=== PATIENT | female | born 1945 | race Caucasian/White ===

== ENCOUNTER 2018-01-20 17:47 | Observation (INO) ==
[~2018-01-20 17:47] MED LIST: Gabapentin 300 MG CAPSULE PO SCH
--- NOTE | 2018-01-20 18:25 | Emergency Department Note ---
Disposition Clinical Impression: Dehydration Lower lobe pneumonia Qualifiers: Pneumonia type: due to unspecified organism Laterality: left Qualified Code(s) : J18.1 - Lobar pneumonia, unspecified organism Disposition: Admitted As Inpatient Condition: Fair Weakness HPI - General Stated complaint: weakness Time Seen by Provider: 01/20/18 18:08 Source: patient Limitations: no limitations Nursing Notes Reviewed: Yes Vital Signs Reviewed: Yes - History of Present Illness HPI Narrative: 72-year-old female presents emergency department for evaluation of generalized weakness. Patient was seen in emergency department earlier this day or evaluation and found to have evidence of a early left lower lobe pneumonia on x- ray. She was given IV antibiotics and IV fluids and well up to try to go home. After she returned home she found it too difficult to ambulate due to generalized weakness that she actually had a fall. She did not hurt herself. She states that there are no new symptoms since her discharge. Patient has prior history of bilateral hip replacements and left knee replacement. She also has chronic peripheral edema of her lower legs contributing to significant weight with attempting to ambulate. Patient earlier this day had a CT scan of the head related to her weakness and was found to show no acute abnormalities. Her laboratory studies were not significantly abnormal except for a slightly low sodium of 1:30. She does have some element of chronic renal insufficiency with elevated creatinine of 1.45 - Related Data Home Medications Medication Instructions Recorded Confirmed Amlodipine Besylate/Benazepril 1 each PO DAILY 12/11/17 01/20/18 [Lotrel 5-40 mg Capsule] Calcitriol [Rocaltrol] 0.25 mcg PO DAILY 12/11/17 01/20/18 Calcium Lactate 100 mg PO AD 12/11/17 01/20/18 Coconut Oil 2,000 mg PO BID 12/11/17 01/20/18 Ergocalciferol (VITAMIN D2) 2,000 unit PO DAILY 12/11/17 01/20/18 [Vitamin D2] Furosemide [Lasix] 20 mg PO PER PKG DI 12/11/17 01/20/18 Gabapentin [Neurontin] 300 mg PO PER PKG DI 12/11/17 01/20/18 Lactobac/Bifidobac/Glob Pr Con 1 each PO DAILY 12/11/17 01/20/18 [Ultra Arielle Plus Capsule] Metoprolol Succinate 100 mg PO DAILY 12/11/17 01/20/18 Omeprazole [PriLOSEC] 20 mg PO DAILY PRN 12/11/17 01/20/18 Ropinirole HCl [Requip Xl] 2 mg PO BID 12/11/17 01/20/18 Tramadol HCl [Ultram] 50 mg PO QID 12/11/17 01/20/18 Previous Rx's Medication Instructions Recorded levoFLOXacin [Levaquin] 500 mg PO ONCE #10 tablet 01/20/18 Allergies Allergy/AdvReac Type Severity Reaction Status Date / Time metformin Allergy Diarrhea Verified 01/20/18 18:17 pioglitazone Allergy Swelling Verified 01/20/18 18:17 of Lip/Tongue/Throat pregabalin [From Lyrica] Allergy See Verified 01/20/18 18:17 Comments Sulfa (Sulfonamide Allergy See Verified 01/20/18 18:17 Antibiotics) Comments sulfamethoxazole Allergy Redness of Verified 01/20/18 18:17 [From Bactrim] Skin trimethoprim [From Bactrim] Allergy Redness of Verified 01/20/18 18:17 Skin Amoxicillin [From Augmentin] AdvReac Diarrhea Verified 01/20/18 18:17 clavulanic acid AdvReac Diarrhea Verified 01/20/18 18:17 [From Augmentin] gabapentin AdvReac Nausea Verified 01/20/18 18:17 Review of Systems: Constitutional: See history of present illness HENT: [Negative for congestion.] Eyes: [Negative for discharge.] Respiratory: See history of present illness Cardiovascular: [Negative for chest pain.] Gastrointestinal: [Negative for nausea, vomiting, abdominal pain and diarrhea.] Endocrine: [Negative for excessive thirst,urination] Genitourinary: [Negative for dysuria and frequency.] Musculoskeletal: [Negative for myalgias and arthralgias.] Skin: [Negative for rash.] Neurological: See history of present illness needed for headache, localized weakness, or dizziness Psychiatric/Behavioral: [Negative for nervous/anxious.] All other systems reviewed and are negative. Past Medical History - Past Medical History Attestation: Yes The following information was validated with the patient. Source: patient Medical history: Reports: arthritis, GERD, hypertension, other Psychiatric history: Reports: no psych history - Social History Smoking Status: Never smoker Smokeless Tobacco Status: No Alcohol use: Reports: none Drug use: Reports: none Physical Exam Constitutional: Patient is [alert], morbidly obese and cooperative. . The patient appears and mildly symptomatic, nontoxic but mildly ill. HENT: Head: Normocephalic and atraumatic. Right Ear: External ear normal. Left Ear: External ear normal. Nose: Nose normal. Mouth/Throat: Oropharynx is clear and mucous membranes show mild dehydration persist Eyes: Conjunctivae and EOM are normal. Pupils are equal, round, and reactive to light. Right eye exhibits [no] discharge. Left eye exhibits [no] discharge. Neck: Trachea is midline, normal range of motion and [phonation normal]. Neck supple. Cardiovascular: [Regular rhythm], S1 normal, S2 normal, normal heart sounds and intact distal pulses. Exam reveals no gallop and no friction rub. No murmur heard. [Capillary refill is brisk.] [Peripheral pulses are 2+] Pulmonary/Chest: Effort [normal] No stridor. [No] tachypnea. [No] respiratory distress. There are [no] decreased breath sounds. [There no wheezes, no rhonchi , or rales.] Abdominal: Soft. [Bowel sounds are normal]. There exhibits [no] distension and [no] mass. There is no hepatosplenomegaly. There is [no tenderness], [no] CVA tenderness. There is [no rigidity, no rebound, no guarding]. Musculoskeletal: Normal range of motion of uninvolved extremities. There exhibits [no edema]. [ ] Neurological: Patient is alert. Patient displays no atrophy and no tremor. No cranial nerve deficit and exhibits normal muscle tone. Coordination normal grossly. Skin: Skin is warm and dry. No erythema. No rash noted. Psychiatric: Patient has a normal mood and affect. 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 Fu for admission [facility] - [facility] Narrative Medical decision making narrative: Patient has failed outpatient treatment for pneumonia and will be admitted for IV antibiotics and fluid hydration
[2018-01-20] MEDS ORDERED: Naloxone 0.4 MG/ML INJ IVP PRN (18:37)
[2018-01-20] MEDS ORDERED: Neosporin OINT 1 APPL PACKET TP ONE (18:42)
[2018-01-20] MEDS ORDERED: levoFLOXacin 500 MG TABLET PO SCH (18:46)
[2018-01-20] MEDS ORDERED: CALCIUM LACTATE 100 MG PO SCH (18:46)
[2018-01-20] MEDS ORDERED: COCONUT OIL 2000 MG PO SCH (21:00)
[2018-01-20] MEDS: 0.9 % Sodium Chloride 1,000 ML IVC SCH (21:58)
[2018-01-20] MEDS: rOPINIRole 1 MG TABLET PO SCH (21:59)
[2018-01-20] MEDS: Metoprolol XL (24 HR) Succ 50 MG TAB.ER.24H PO SCH (21:59)
[2018-01-20] MEDS: traMADol 50 MG TABLET PO SCH (22:00)
[2018-01-21] MEDS ORDERED: Mag Hydrox/Al Hydrox/Simeth 30 ML UDC PO PRN (02:19)
[2018-01-21] MEDS: Acetaminophen 325 MG TABLET PO PRN ×2 (02:31→19:25)
[2018-01-21] MEDS: 0.9 % Sodium Chloride 1,000 ML IVC SCH ×2 (04:43→12:51)
[2018-01-21 05:51] LABS: Basophils % 0.1 %; Eosinophils % 0.1 %; Hematocrit 30.5 % (35.3-44.9); Immature Granulocytes % 0.7 % (0-4); Lymphocytes # 0.6 K/mcL (0.6-4.6); Lymphocytes % 8.7 %; Mean Corpuscular HGB Conc 32.8 g/dL (31.6-35.5); Mean Corpuscular Hemoglobin 31.3 pg (28.0-33.3); Mean Corpuscular Volume 95.3 fL (83.0-100.0); Mean Platelet Volume 10.4 fL (9.4-12.4); Monocytes # 0.6 K/mcL (0.0-1.3); Platelet Count 139 K/mcL (140-400); Red Cell Distribution Width 14.1 % (11.5-14.5); Segmented Neutrophils % 82.4 %
[2018-01-21 06:10] LABS: Albumin 3.2 g/dL (3.5-5.7); Albumin/Globulin Ratio 1.1 (1.1-2.2); Bilirubin,Total 0.5 mg/dL (0.3-1.0); Calcium 8.3 mg/dL (8.6-10.3); Globulin 2.9 g/dL (2.4-3.5); Potassium 4.1 mEq/L (3.5-5.1); Total Protein 6.1 g/dL (6.4-8.9)
[2018-01-21 06:45] LABS: Magnesium 1.7 mg/dL (1.6-2.6)
[2018-01-21] MEDS ORDERED: Lactobacillus 1 EACH CAP.SPRINK PO SCH (09:00)
[2018-01-21] MEDS ORDERED: Levofloxacin 500 MG/100 ML 500 MG/100 ML BAG IVPB SCH (09:00)
[2018-01-21] MEDS ORDERED: NON-FORMULARY MEDICATION 1 EACH EACH (Metoprolol Succinate [Metoprolol Succinate] 100 MG) PO SCH (09:00)
[2018-01-21] MEDS: amLODIPine 5 MG TABLET PO SCH (09:35)
[2018-01-21] MEDS: traMADol 50 MG TABLET PO SCH ×4 (09:35→20:18)
[2018-01-21] MEDS: Cholecalciferol (D-3) 1,000 UNIT TABLET PO SCH (09:35)
[2018-01-21] MEDS: rOPINIRole 1 MG TABLET PO SCH ×2 (09:35→20:19)
[2018-01-21] MEDS: Lisinopril 20 MG TABLET PO SCH (09:35)
[2018-01-21] MEDS: Metoprolol XL (24 HR) Succ 50 MG TAB.ER.24H PO SCH ×2 (09:36→20:18)
--- NOTE | 2018-01-21 13:46 | Internal Med History&Physical ---
Date of Encounter: 01/21/18 Time of Encounter: 13:44 Assessment and Plan (1) Lower lobe pneumonia Current visit: Yes Status: Acute Continue Levaquin. Continue IV fluids. Will repeat labs in the morning. Qualifiers: Pneumonia type: due to unspecified organism Laterality: left Qualified Code(s): J18.1 - Lobar pneumonia, unspecified organism (2) Essential hypertension Current visit: Yes Status: Acute controlled. continue current meds. monitor BP. Internal Medicine - H&P: HPI Admitted From: Emergency Dept Plans for Post Hospital Care: Home History of present illness: Ms. Haddad is a 72 year old female admitted to inpatient unit for pneumonia and left lower lobe. Presented to the emergency room with a few day history of feeling weak. Was treated for pneumonia and discharged to home. Where she had a fall with no injuries at home due to weakness. Lives at home with [place]. 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 Continues to run low-grade fevers. Slightly elevated BUN and creatinine. Continue IV fluids. Continue oxygen per nasal cannula as needed. Will try to wean. Past medical history includes hypertension, osteoarthritis and Gerd. Denies shortness of breath, chest pain, chills, nausea vomiting or diarrhea. Starting to get appetite back. Bowels moving as normal. Past Med Surg Social Fam HX - Past Medical History Medical history: arthritis, diabetes, hyperlipidemia, hypertension Additional medical history: lower ext. edema Psychiatric history: no psych history - Past Surgical History Surgical History: hip replacement, knee replacement Additional surgical history: Saud Hip Replacement, Left Knee Replacement - Social History Smoking Status: Never smoker Smokeless Tobacco Status: No Alcohol use: none Drug use: none Internal Medicine - H&P: Meds Amlodipine Besylate/Benazepril [Lotrel 5-40 mg Capsule] 1 each PO DAILY [History] Calcitriol [Rocaltrol] 0.25 mcg PO DAILY 12/11/17 [History] Calcium Lactate 100 mg PO AD 12/11/17 [History] Coconut Oil 2,000 mg PO BID 12/11/17 [History] Ergocalciferol (VITAMIN D2) [Vitamin D2] 2,000 unit PO DAILY 12/11/17 [History] Furosemide [Lasix] 20 mg PO PER PKG DI 12/11/17 [History] Gabapentin [Neurontin] 300 mg PO PER PKG DI 12/11/17 [History] Lactobac/Bifidobac/Glob Pr Con [Ultra Arielle Plus Capsule] 1 each PO DAILY [History] Metoprolol Succinate 100 mg PO DAILY 12/11/17 [History] Omeprazole [PriLOSEC] 20 mg PO DAILY PRN 12/11/17 [History] Ropinirole HCl [Requip Xl] 2 mg PO BID 12/11/17 [History] Tramadol HCl [Ultram] 50 mg PO QID 12/11/17 [History] levoFLOXacin [Levaquin] 500 mg PO ONCE #10 tablet 01/20/18 [Rx] 3 Allergy/AdvReac Type Severity Reaction Status Date / Time metformin Allergy Diarrhea Verified 01/20/18 18:17 pioglitazone Allergy Swelling Verified 01/20/18 18:17 of Lip/Tongue/Throat pregabalin [From Lyrica] Allergy See Verified 01/20/18 18:17 Comments Sulfa (Sulfonamide Allergy See Verified 01/20/18 18:17 Antibiotics) Comments sulfamethoxazole Allergy Redness of Verified 01/20/18 18:17 [From Bactrim] Skin trimethoprim [From Bactrim] Allergy Redness of Verified 01/20/18 18:17 Skin Amoxicillin [From Augmentin] AdvReac Diarrhea Verified 01/20/18 18:17 clavulanic acid AdvReac Diarrhea Verified 01/20/18 18:17 [From Augmentin] gabapentin AdvReac Nausea Verified 01/20/18 18:17 All Systems PM: A 10-system review of systems was performed and is negative for pertinent findings except as documented above in the HPI. - Constitutional Constitutional: no chills, no fever(s), no night sweats - EENT Eyes: no change in vision, no discharge, no pain, no photophobia Ears: no ear discharge, no ear pain, no tinnitus Nose, mouth and throat: no dysphagia, no nasal discharge, no neck pain, no sore throat - Cardiovascular Cardiovascular ROS IM: no chest pain, no diaphoresis, no dyspnea, no lightheadedness, no palpitations, no syncope - Respiratory Respiratory: no cough, no dyspnea, no wheezing, no excessive phlegm production - Gastrointestinal Gastrointestinal: no abdominal pain, no diarrhea, no hematemesis, no hematochezia, no melena, no nausea, no vomiting - Genitourinary Genitourinary: no change in urinary stream, no dysuria, no flank pain, no hematuria - Musculoskeletal Musculoskeletal ROS IM: no numbness, no tingling - Integumentary Integumentary IM: no rash, no unusual bruising - Neurological Neurological ROS: no confusion, no convulsions, no focal weakness, no numbness, no tingling, no tremor(s) - Hematologic/Lymphatic Hematologic/Lymphatic: no easy bruising - Constitutional Vitals: Temp Pulse Resp BP Pulse Ox 100.2 F H 80 16 127/65 99 01/21/18 12:00 01/21/18 12:00 01/21/18 12:00 01/21/18 12:00 01/21/18 12:00 General appearance: Present: cooperative, A&O X 3, pleasant, no acute distress, obese, answers questions appropriately - Head Head exam: Present: atraumatic, normocephalic - Eye Eye exam: Present: PERRL, conjuntiva pink, sclera anicteric Pupils: Present: PERRL - Neck Neck exam general surgery: Present: supple, trachea midline. Absent: lymphadenopathy - Respiratory Respiratory exam: Present: CTAB. Absent: accessory muscle use, rales, rhonchi, wheezes Additional comments: Diminished breath sounds bilateral bases - Cardiovascular Cardiovascular exam: Present: RRR, +S1, +S2. Absent: diastolic murmur, gallop, rubs, systolic murmur - GI/Abdominal GI/Abdominal exam: Present: normal bowel sounds, soft, no peritoneal signs. Absent: distended, tenderness - Extremities Exam Extremities exam: Present: warm, radial pulses palpable and symmetrical. Absent : calf tenderness, cyanotic, pedal edema - Neurological Exam Neurological exam: Present: CN II-XII intact, oriented X3, no focal deficits. Absent: pronater drift, facial droop, speech deficit - Skin Skin exam: Present: dry, intact Internal Med - H&P Results - Labs CBC & Chem 7: 01/21/18 05:15 01/21/18 05:15 Labs: Short CBC 01/21/18 Range/Units 05:15 WBC 7.2 (4.3-11.1) K/mcL Hgb 10.0 L D (11.5-15.4) g/dL Hct 30.5 L (35.3-44.9) % Plt Count 139 L (140-400) K/mcL Neutrophils # 6.0 (1.6-8.9) K/mcL BMP 01/21/18 05:15 Sodium 131 L Potassium 4.1 Chloride 99 Carbon Dioxide 25 BUN 30 H Creatinine 1.40 H Glucose 126 H Calcium 8.3 L Liver Function 01/21/18 Range/Units 05:15 Total Bilirubin 0.5 (0.3-1.0) mg/dL AST 27 (13-39) Units/L ALT 12 (7-52) Units/L Alkaline Phosphatase 30 L (34-104) Units/L Albumin 3.2 L (3.5-5.7) g/dL - VTE Reasons for not Prescribing Prophylaxis: Not indicated-Anticoagulated or INR therapeutic Documentation of Mechanical Device: Intermittent pneumatic compression device
[2018-01-22] MEDS: rOPINIRole 0.25 MG TABLET PO SCH ×2 (01:14→08:14)
[2018-01-22] MEDS: 0.9 % Sodium Chloride 1,000 ML IVC SCH (02:01)
[2018-01-22 05:54] LABS: Basophils % 0.4 %; Eosinophils # 0.1 K/mcL (0.0-0.6); Eosinophils % 1.2 %; Hematocrit 29.3 % (35.3-44.9); Hemoglobin 9.5 g/dL (11.5-15.4); Immature Granulocytes % 0.4 % (0-4); Lymphocytes # 0.6 K/mcL (0.6-4.6); Lymphocytes % 12.4 %; Mean Corpuscular HGB Conc 32.4 g/dL (31.6-35.5); Mean Corpuscular Hemoglobin 30.8 pg (28.0-33.3); Mean Corpuscular Volume 95.1 fL (83.0-100.0); Mean Platelet Volume 10.2 fL (9.4-12.4); Monocytes # 0.5 K/mcL (0.0-1.3); Monocytes % 11.2 %; Neutrophils # 3.6 K/mcL (1.6-8.9); Platelet Count 130 K/mcL (140-400); Red Blood Count 3.08 M/mcL (3.82-4.97); Red Cell Distribution Width 14.5 % (11.5-14.5); Segmented Neutrophils % 74.4 %
[2018-01-22 06:10] LABS: Calcium 8.3 mg/dL (8.6-10.3); Potassium 4.3 mEq/L (3.5-5.1)
[2018-01-22] MEDS: Cholecalciferol (D-3) 1,000 UNIT TABLET PO SCH (08:14)
[2018-01-22] MEDS: amLODIPine 5 MG TABLET PO SCH (08:14)
[2018-01-22] MEDS: Lisinopril 20 MG TABLET PO SCH (08:15)
[2018-01-22] MEDS: Acetaminophen 325 MG TABLET PO PRN (08:15)
[2018-01-22] MEDS: Metoprolol XL (24 HR) Succ 50 MG TAB.ER.24H PO SCH (08:15)
[2018-01-22] MEDS: traMADol 50 MG TABLET PO SCH ×2 (08:22→13:19)
--- NOTE | 2018-01-22 08:41 | Internal Med Progress Note ---
Date of Encounter: 01/22/18 Time of Encounter: 08:39 - Assessment and plan (1) Lower lobe pneumonia Current Visit: Yes Status: Acute Assessment and plan: Continue antibiotics. Qualifiers: Pneumonia type: due to unspecified organism Laterality: left Qualified Code(s): J18.1 - Lobar pneumonia, unspecified organism (2) Essential hypertension Current Visit: Yes Status: Acute Assessment and plan: Controlled with current medication. Monitor blood pressure. - Time Spent With Patient less than 15 minutes - Subjective Interval history: Continues to run a fever. Relieved with Tylenol. Denies shortness of breath or chest pain. Denies nausea, vomiting or diarrhea. O2 sat 96% on room air. Bowels moving as normal. Appetite and hydration normal. - Constitutional Vitals: Temp Pulse Resp BP Pulse Ox 101.1 F H 84 17 129/62 96 01/22/18 08:01 01/22/18 07:25 01/22/18 07:25 01/22/18 07:25 01/22/18 07:25 General appearance: Present: cooperative, A&O X 3, pleasant, no acute distress, obese, answers questions appropriately - Head Head exam: Present: atraumatic, normocephalic - Eye Eye exam: Present: PERRL, conjuntiva pink, sclera anicteric Pupils: Present: PERRL - Neck Neck exam general surgery: Present: supple, trachea midline. Absent: lymphadenopathy - Respiratory Respiratory exam: Present: CTAB. Absent: accessory muscle use, rales, rhonchi, wheezes Additional comments: Diminished bilateral bases - Cardiovascular Cardiovascular exam: Present: RRR, +S1, +S2. Absent: diastolic murmur, gallop, rubs, systolic murmur - GI/Abdominal GI/Abdominal exam: Present: normal bowel sounds, soft, no peritoneal signs. Absent: distended, tenderness - Extremities Exam Extremities exam: Present: warm, radial pulses palpable and symmetrical. Absent : calf tenderness, cyanotic, pedal edema Additional comments: Non-pitting edema bilateral lower extremities. - Neurological Exam Neurological exam: Present: CN II-XII intact, oriented X3, no focal deficits. Absent: pronater drift, facial droop, speech deficit - Skin Skin exam: Present: dry, intact Internal Medicine: Result - Labs CBC & Chem 7: 01/22/18 05:25 01/22/18 05:25 Labs: Short CBC 01/22/18 Range/Units 05:25 WBC 4.8 (4.3-11.1) K/mcL Hgb 9.5 L (11.5-15.4) g/dL Hct 29.3 L (35.3-44.9) % Plt Count 130 L (140-400) K/mcL Neutrophils # 3.6 (1.6-8.9) K/mcL BMP 01/22/18 05:25 Sodium 133 L Potassium 4.3 Chloride 102 Carbon Dioxide 25 BUN 24 H Creatinine 1.15 Glucose 102 Calcium 8.3 L - VTE Reasons for not Prescribing Prophylaxis: Not indicated-Anticoagulated or INR therapeutic Documentation of Mechanical Device: Intermittent pneumatic compression device Consult Discharge Plan - Plan
[2018-01-22] MEDS ORDERED: LEVOFLOXACIN 750 MG/150 ML IVPB SCH (09:00)
[2018-01-22 14:47] VITALS: BP 124/65
--- NOTE | 2018-01-22 14:58 | Discharge Summary ---
Date of Encounter: 01/22/18 Time of Encounter: 14:56 - Discharge Diagnosis (1) Left lower lobe pneumonia Priority: Primary Status: Acute Comments: Patient is much improved and is to have a week's worth of Levaquin. Qualifiers: Pneumonia type: due to unspecified organism Qualified Code(s): J18.1 - Lobar pneumonia, unspecified organism (2) Edema of both lower extremities Priority: Secondary Status: Acute Comments: This is at baseline. (3) Essential hypertension Priority: Secondary Status: Acute Comments: Clinically stable. We will continue home regimen and follow. Hospital course: Ms. Haddad is a 72 year old female with a history of pneumonia. She was treated with oral antibiotics and seemed to get worse over the next few days. She was suddenly short of breath and fatigue, unable to get up and presented to the emergency room here. After a day and a half of antibiotics, she is feeling much better and ready to go home. Even though she has a persistent, low-grade fever she seems to be stable and we will discharge her with a week of oral antibiotics and instructions to follow-up with primary care provider within one week. - Time Spent with Patient Total time spent providing and/or coordinating discharge services: - Discharge Medications Prescriptions: Levofloxacin [Levaquin] 500 mg PO DAILY #7 tablet Home Medications: Amlodipine Besylate/Benazepril [Lotrel 5-40 mg Capsule] 1 each PO DAILY [History] Calcitriol [Rocaltrol] 0.25 mcg PO DAILY 12/11/17 [History] Calcium Lactate 100 mg PO AD 12/11/17 [History] Coconut Oil 2,000 mg PO BID 12/11/17 [History] Ergocalciferol (VITAMIN D2) [Vitamin D2] 2,000 unit PO DAILY 12/11/17 [History] Furosemide [Lasix] 20 mg PO PER PKG DI 12/11/17 [History] Gabapentin [Neurontin] 300 mg PO PER PKG DI 12/11/17 [History] Lactobac/Bifidobac/Glob Pr Con [Ultra Arielle Plus Capsule] 1 each PO DAILY [History] Metoprolol Succinate 100 mg PO DAILY 12/11/17 [History] Omeprazole [PriLOSEC] 20 mg PO DAILY PRN 12/11/17 [History] Ropinirole HCl [Requip Xl] 2 mg PO BID 12/11/17 [History] Tramadol HCl [Ultram] 50 mg PO QID 12/11/17 [History] levoFLOXacin [Levaquin] 500 mg PO ONCE #10 tablet 01/20/18 [Rx] Levofloxacin [Levaquin] 500 mg PO DAILY #7 tablet 01/22/18 [Rx] Allergies/Adverse Reactions: 3 Allergy/AdvReac Type Severity Reaction Status Date / Time metformin Allergy Diarrhea Verified 01/20/18 18:17 pioglitazone Allergy Swelling Verified 01/20/18 18:17 of Lip/Tongue/Throat pregabalin [From Lyrica] Allergy See Verified 01/20/18 18:17 Comments Sulfa (Sulfonamide Allergy See Verified 01/20/18 18:17 Antibiotics) Comments sulfamethoxazole Allergy Redness of Verified 01/20/18 18:17 [From Bactrim] Skin trimethoprim [From Bactrim] Allergy Redness of Verified 01/20/18 18:17 Skin Amoxicillin [From Augmentin] AdvReac Diarrhea Verified 01/20/18 18:17 clavulanic acid AdvReac Diarrhea Verified 01/20/18 18:17 [From Augmentin] gabapentin AdvReac Nausea Verified 01/20/18 18:17 Date of admission: 01/20/18 19:19 Primary care physician: Altagracia Molina CNP Discharging clinician: Basil Fu Anticipated date of discharge: 01/22/18 - Constitutional Vitals: Temp Pulse Resp BP Pulse Ox 99.3 F 72 17 124/65 97 01/22/18 14:43 01/22/18 14:43 01/22/18 14:43 01/22/18 14:43 01/22/18 14:43 General appearance: Present: cooperative, pleasant, no acute distress, answers questions appropriately Exam: Please see exam from progress note this date. - Patient Status Disposition: Home, Self-Care Condition: Fair Overall status at discharge: patient is progressing back to baseline - Discharge Instructions Follow Up With: Altagracia Molina CNP [Primary Care Provider] - Forms: ED Satisfaction Letter - Diet and Activity Activity: resume usual activities as tolerated Diet: advance to your usual diet - VTE Reasons for not Prescribing Prophylaxis: Not indicated-Anticoagulated or INR therapeutic Documentation of Mechanical Device: Intermittent pneumatic compression device
== END 2018-01-22 15:47 | disposition home or self-care (01) ==
LOC: INPGRE 17:47 → EMEROOGRE 17:47 → INPGRE 20:01

== ENCOUNTER 2018-06-06 15:23 | Inpatient (IN) ==
[2018-06-06] MEDS ORDERED: [UNRECOGNIZED DRUG - OTHER] PO PRN (18:48)
[2018-06-06] MEDS: rOPINIRole 1 MG TABLET PO SCH (20:40)
[2018-06-06] MEDS: Aspirin Enteric Coated 325 MG Tablet PO SCH (20:40)
[2018-06-06] MEDS: Gabapentin 300 MG CAPSULE PO SCH (20:40)
[2018-06-06] MEDS: *HR* OxyCODONE Immed Rel 5 MG TABLET PO PRN (20:45)
[2018-06-07] MEDS: *HR* OxyCODONE Immed Rel 5 MG TABLET PO PRN ×3 (04:03→17:37)
[2018-06-07 05:23] LABS: Basophils % 0.4 %; Eosinophils # 0.1 K/mcL (0.0-0.6); Eosinophils % 1.5 %; Hematocrit 29.1 % (35.3-44.9); Hemoglobin 9.5 g/dL (11.5-15.4); Immature Granulocytes % 0.7 % (0-4); Lymphocytes # 1.1 K/mcL (0.6-4.6); Lymphocytes % 15.2 %; Mean Corpuscular HGB Conc 32.6 g/dL (31.6-35.5); Mean Corpuscular Hemoglobin 30.6 pg (28.0-33.3); Mean Corpuscular Volume 93.9 fL (83.0-100.0); Mean Platelet Volume 10.8 fL (9.4-12.4); Monocytes % 13.2 %; Neutrophils # 5.2 K/mcL (1.6-8.9); Platelet Count 163 K/mcL (140-400); Red Cell Distribution Width 13.8 % (11.5-14.5)
[2018-06-07 05:28] LABS: INR 1.1; Prothrombin Time 12.9 Seconds (9.4-12.1)
[2018-06-07 05:30] LABS: Activated Partial Thrombo Time 31.7 Seconds (26.0-36.0)
[2018-06-07 05:43] LABS: Calcium 8.4 mg/dL (8.6-10.3); Potassium 4.3 mEq/L (3.5-5.1)
[2018-06-07] MEDS: Lisinopril 20 MG TABLET PO SCH (08:32)
[2018-06-07] MEDS: amLODIPine 5 MG TABLET PO SCH (08:32)
[2018-06-07] MEDS: Aspirin Enteric Coated 325 MG Tablet PO SCH ×2 (08:33→20:00)
[2018-06-07] MEDS: Metoprolol XL (24 HR) Succ 50 MG TAB.ER.24H PO SCH (08:33)
[2018-06-07] MEDS: Diphenoxylate/Atropine 1 TAB TABLET PO PRN ×2 (09:02→17:37)
[2018-06-07] MEDS: Cholecalciferol (D-3) 1,000 UNIT TABLET PO SCH (12:36)
[2018-06-07] MEDS: Gabapentin 300 MG CAPSULE PO SCH ×2 (12:36→20:00)
[2018-06-07] MEDS: rOPINIRole 1 MG TABLET PO SCH (19:59)
[2018-06-08] MEDS: Diphenoxylate/Atropine 1 TAB TABLET PO PRN ×2 (03:56→17:25)
[2018-06-08] MEDS: *HR* OxyCODONE Immed Rel 5 MG TABLET PO PRN ×3 (07:01→19:35)
[2018-06-08] MEDS: amLODIPine 5 MG TABLET PO SCH (10:03)
[2018-06-08] MEDS: Aspirin Enteric Coated 325 MG Tablet PO SCH ×2 (10:03→19:35)
[2018-06-08] MEDS: Gabapentin 300 MG CAPSULE PO SCH ×2 (10:03→19:34)
[2018-06-08] MEDS: Lisinopril 20 MG TABLET PO SCH (10:03)
[2018-06-08] MEDS: Metoprolol XL (24 HR) Succ 50 MG TAB.ER.24H PO SCH (10:03)
[2018-06-08] MEDS: Cholecalciferol (D-3) 1,000 UNIT TABLET PO SCH (11:36)
--- NOTE | 2018-06-08 18:46 | Internal Med History&Physical ---
Date of Encounter: 06/07/18 Time of Encounter: 14:00 Assessment and Plan (1) Essential hypertension Current visit: Yes Status: Chronic continue current medications (2) Status post total right knee replacement Current visit: Yes Status: Acute continue current care PT OT for deconditioning Internal Medicine - H&P: HPI Chief complaint: S/P Right Total Knee replacement deconditioning Admitted From: Intrahospital Transfer History of present illness: Ms. 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 she says she does like to keep track of things has had about a year of irritable bowl symptom did have colonoscopy she says was ok given lomotil prn still has some frequent small bm not wt loss no abd pain Past Med Surg Social Fam HX - Past Medical History Medical history: arthritis, diabetes, hyperlipidemia, hypertension Additional medical history: frequent lower extremity edema Psychiatric history: no psych history - Past Surgical History Surgical History: hip replacement, knee replacement Additional surgical history: Bilateral Hip Replacement, Left Knee Replacement - Social History Smoking Status: Never smoker Smokeless Tobacco Status: No Alcohol use: none Drug use: none - Family History Father Hx Family Respiratory Disorders: Yes Hx Family Cancer: Yes (lung) Mother Hx Family Cancer: Yes (lung) Internal Medicine - H&P: Meds Amlodipine Besylate/Benazepril [Lotrel 5-40 mg Capsule] 1 each PO DAILY 12/11/17 [History] Calcitriol [Rocaltrol] 0.25 mcg PO MOWEFR 12/11/17 [History] Calcium Lactate 100 mg PO AD 12/11/17 [History] Coconut Oil 2,000 mg PO BID 12/11/17 [History] Ergocalciferol (VITAMIN D2) [Vitamin D2] 2,000 unit PO 1200 12/11/17 [History] Furosemide [Lasix] 40 mg PO QAM PRN 12/11/17 [History] Lactobac/Bifidobac/Glob Pr Con [Ultra Arielle Plus Capsule] 1 each PO DAILY 12/11/17 [History] Metoprolol Succinate 100 mg PO DAILY 12/11/17 [History] Omeprazole [PriLOSEC] 20 mg PO DAILY PRN 12/11/17 [History] Tramadol HCl [Ultram] 50 mg PO Q6H 12/11/17 [History] Aspirin Enteric Coated [Aspirin EC] 325 mg PO BID #20 tablet. 06/04/18 [Rx] Diphenoxylate/Atropine [Lomotil 2.5 mg/0.025 mg] 1 tab PO QID PRN 06/04/18 [History] Furosemide [Lasix] 40 mg PO DAILY PRN 06/04/18 [History] Gabapentin [Neurontin] 300 mg PO QPM 06/04/18 [History] Gabapentin [Neurontin] 600 mg PO HS 06/04/18 [History] OxyCODONE Immed Rel [Roxicodone 5 MG] 5 mg PO Q6HR PRN 5 Days #20 tablet 06/04/18 [Rx] Ropinirole HCl [Requip] 2 mg PO TID 06/04/18 [History] Allergy/AdvReac Type Severity Reaction Status Date / Time pioglitazone Allergy Swelling Verified 06/04/18 11:47 of Lip/Tongue/Throat Sulfa (Sulfonamide Allergy See Verified 06/04/18 11:47 Antibiotics) Comments sulfamethoxazole Allergy Redness of Verified 06/04/18 11:47 [From Bactrim] Skin trimethoprim [From Bactrim] Allergy Redness of Verified 06/04/18 11:47 Skin Amoxicillin [From Augmentin] AdvReac Diarrhea Verified 06/04/18 11:47 clavulanic acid AdvReac Diarrhea Verified 06/04/18 11:47 [From Augmentin] gabapentin AdvReac Nausea Verified 06/04/18 11:47 metformin AdvReac Diarrhea Verified 06/04/18 11:47 pregabalin [From Lyrica] AdvReac See Verified 06/04/18 11:47 Comments All Systems PM: A 10-system review of systems was performed and is negative for pertinent findings except as documented above in the HPI. - Constitutional Constitutional: as per HPI - Constitutional Vitals: Temp Pulse Resp BP Pulse Ox 97.4 F L 96 16 126/67 94 06/08/18 07:00 06/08/18 07:00 06/08/18 07:00 06/08/18 07:00 06/08/18 07:00 General appearance: Present: A&O X 0, answers questions appropriately - Neck Neck exam general surgery: Present: normal inspection - Respiratory Additional comments: clear susan - Cardiovascular Additional comments: regular pulse symetric strong - GI/Abdominal Additional comments: obese abd soft nt no mass no rebound - Extremities Exam Additional comments: symetric pulses intact Internal Med - H&P Results - Labs CBC & Chem 7: 06/07/18 04:55 06/07/18 04:55 - VTE Documentation of Mechanical Device: Intermittent pneumatic compression device
--- NOTE | 2018-06-08 18:56 | Internal Med Progress Note ---
Date of Encounter: 06/08/18 Time of Encounter: 16:00 - Assessment and plan (1) Essential hypertension Current Visit: Yes Status: Chronic (2) Status post total right knee replacement Current Visit: Yes Status: Acute - Subjective Interval history: Assessment and Plan (1) Essential hypertension Current visit: Yes Status: Chronic continue current medications hb was low continue to monitor (2) Status post total right knee replacement Current visit: Yes Status: Acute continue current care PT OT for deconditioning Interval history no current complaints participating well Allergy/AdvReac Type Severity Reaction Status Date / Time pioglitazone Allergy Swelling Verified 06/04/18 11:47 of Lip/Tongue/Throat Sulfa (Sulfonamide Allergy See Verified 06/04/18 11:47 Antibiotics) Comments sulfamethoxazole Allergy Redness of Verified 06/04/18 11:47 [From Bactrim] Skin trimethoprim [From Bactrim] Allergy Redness of Verified 06/04/18 11:47 Skin Amoxicillin [From Augmentin] AdvReac Diarrhea Verified 06/04/18 11:47 clavulanic acid AdvReac Diarrhea Verified 06/04/18 11:47 [From Augmentin] gabapentin AdvReac Nausea Verified 06/04/18 11:47 metformin AdvReac Diarrhea Verified 06/04/18 11:47 pregabalin [From Lyrica] AdvReac See Verified 06/04/18 11:47 Comments - - Constitutional Vitals: Temp Pulse Resp BP Pulse Ox 97.4 F L 96 16 126/67 94 06/08/18 07:00 06/08/18 07:00 06/08/18 07:00 06/08/18 07:00 06/08/18 07:00 General appearance: Present: A&O X 0, answers questions appropriately - Neck Neck exam general surgery: Present: normal inspection - Respiratory Additional comments: clear susan - Cardiovascular Additional comments: regular pulse symetric strong - GI/Abdominal Additional comments: obese abd soft nt no mass no rebound - Extremities Exam Additional comments: symetric pulses intact - Constitutional Vitals: Temp Pulse Resp BP Pulse Ox 97.4 F L 96 16 126/67 94 06/08/18 07:00 06/08/18 07:00 06/08/18 07:00 06/08/18 07:00 06/08/18 07:00 General appearance: Present: A&O X 0, answers questions appropriately Internal Medicine: Result - Labs CBC & Chem 7: 06/07/18 04:55 06/07/18 04:55 - ABG Interpretation ABG results: PT/INR, D-dimer PT 12.9 Seconds (9.4-12.1) H 06/07/18 04:55 - VTE Documentation of Mechanical Device: Intermittent pneumatic compression device Consult Discharge Plan - Plan Referrals: Altagracia Molina, REFUSE LABORER [Primary Care Provider] -
[2018-06-08] MEDS: rOPINIRole 1 MG TABLET PO SCH (19:34)
[2018-06-08] MEDS: Lactobacillus 1 EACH CAP.SPRINK PO SCH (19:35)
[2018-06-09 04:51] LABS: Basophils % 0.6 %; Eosinophils # 0.3 K/mcL (0.0-0.6); Eosinophils % 3.7 %; Hematocrit 27.9 % (35.3-44.9); Hemoglobin 9.1 g/dL (11.5-15.4); Immature Granulocytes % 0.6 % (0-4); Lymphocytes # 1.1 K/mcL (0.6-4.6); Lymphocytes % 14.9 %; Mean Corpuscular HGB Conc 32.6 g/dL (31.6-35.5); Mean Corpuscular Volume 94.9 fL (83.0-100.0); Mean Platelet Volume 9.7 fL (9.4-12.4); Monocytes # 0.9 K/mcL (0.0-1.3); Monocytes % 12.1 %; Platelet Count 213 K/mcL (140-400); Red Blood Count 2.94 M/mcL (3.82-4.97); Segmented Neutrophils % 68.1 %
[2018-06-09 05:07] LABS: Calcium 8.3 mg/dL (8.6-10.3); Potassium 4.6 mEq/L (3.5-5.1)
[2018-06-09] MEDS: *HR* OxyCODONE Immed Rel 5 MG TABLET PO PRN ×2 (09:19→16:13)
[2018-06-09] MEDS: Lactobacillus 1 EACH CAP.SPRINK PO SCH ×2 (09:20→20:28)
[2018-06-09] MEDS: Lisinopril 20 MG TABLET PO SCH (09:20)
[2018-06-09] MEDS: Gabapentin 300 MG CAPSULE PO SCH ×2 (09:20→20:28)
[2018-06-09] MEDS: Aspirin Enteric Coated 325 MG Tablet PO SCH ×2 (09:20→20:28)
[2018-06-09] MEDS: amLODIPine 5 MG TABLET PO SCH (09:20)
[2018-06-09] MEDS: Metoprolol XL (24 HR) Succ 50 MG TAB.ER.24H PO SCH (09:20)
[2018-06-09] MEDS: Diphenoxylate/Atropine 1 TAB TABLET PO PRN (13:21)
[2018-06-09] MEDS: Cholecalciferol (D-3) 1,000 UNIT TABLET PO SCH (13:21)
--- NOTE | 2018-06-09 16:41 | Internal Med Progress Note ---
Date of Encounter: 06/09/18 Time of Encounter: 16:39 - Assessment and plan (1) Status post total right knee replacement Current Visit: Yes Status: Acute Assessment and plan: No acute issues. Patient's right knee surgical incision appears healthy with dressing dry and intact. Patient states that her pain currently is tolerable with current medications. Patient has participated in physical therapy and states that she is progressing well. (2) Edema of both lower extremities Current Visit: Yes Status: Chronic Assessment and plan: Patient with +1 edema to bilateral lower extremities and feet. Patient states history of chronic lymphedema. SCDs in use (3) Essential hypertension Current Visit: Yes Status: Chronic Assessment and plan: Vital signs are stable. We will continue with current medications. - Time Spent With Patient less than 15 minutes - Subjective Interval history: Patient appears relaxed currently denies any discomforts or shortness of breath. Patient states that her pain to her right knee has been minimal while at rest but increases during mobilization. Patient states that her pain has been well- controlled with current medications. Patient states she continues to have loose stools which has been present for several days since surgery. - Constitutional Vitals: Temp Pulse Resp BP Pulse Ox 99.4 F 103 16 121/56 96 06/09/18 09:27 06/09/18 07:55 06/09/18 07:55 06/09/18 07:55 06/09/18 07:55 General appearance: Present: A&O X 0, A&O X 3, answers questions appropriately - Head Head exam: Present: atraumatic, normocephalic - Eye Eye exam: Present: PERRL, conjuntiva pink, sclera anicteric Pupils: Present: PERRL - Neck Neck exam general surgery: Present: supple, trachea midline. Absent: lymphadenopathy - Respiratory Respiratory exam: Present: CTAB. Absent: accessory muscle use, rales, rhonchi, wheezes Additional comments: Lungs are clear throughout upper canas and diminished bases. Basilar lung sounds are distant, likely secondary to patient's obesity. Respiratory effort appears relaxed - Cardiovascular Cardiovascular exam: Present: RRR, +S1, +S2. Absent: diastolic murmur, gallop, rubs, systolic murmur - GI/Abdominal GI/Abdominal exam: Present: normal bowel sounds, soft, no peritoneal signs. Absent: distended, tenderness - Extremities Exam Extremities exam: Present: warm, radial pulses palpable and symmetrical. Absent: calf tenderness, cyanotic, pedal edema Additional comments: Right knee with midline incision that appears healthy with no ecchymosis or erythema noted. Patient with +1 edema to bilateral lower extremities - Neurological Exam Neurological exam: Present: CN II-XII intact, oriented X3, no focal deficits. Absent: pronater drift, facial droop, speech deficit - Skin Skin exam: Present: dry, intact Internal Medicine: Result - Labs CBC & Chem 7: 06/09/18 04:35 06/09/18 04:35 Labs: Short CBC 06/09/18 Range/Units 04:35 WBC 7.3 (4.3-11.1) K/mcL Hgb 9.1 L (11.5-15.4) g/dL Hct 27.9 L (35.3-44.9) % Plt Count 213 (140-400) K/mcL Neutrophils # 5.0 (1.6-8.9) K/mcL BMP 06/09/18 04:35 Sodium 134 L Potassium 4.6 Chloride 105 Carbon Dioxide 22 L BUN 50 H Creatinine 1.68 H Glucose 166 H Calcium 8.3 L - ABG Interpretation ABG results: PT/INR, D-dimer PT 12.9 Seconds (9.4-12.1) H 06/07/18 04:55 - VTE Documentation of Mechanical Device: Intermittent pneumatic compression device Consult Discharge Plan - Plan Referrals: Altagracia Molina SE[employer]ER [employer]FT [Primary Care Provider] -
[2018-06-09] MEDS: rOPINIRole 1 MG TABLET PO SCH (20:27)
[2018-06-10] MEDS: *HR* OxyCODONE Immed Rel 5 MG TABLET PO PRN ×3 (02:32→16:00)
[2018-06-10] MEDS: Furosemide 20 MG TABLET PO PRN (08:48)
[2018-06-10] MEDS: Aspirin Enteric Coated 325 MG Tablet PO SCH ×2 (08:48→19:35)
[2018-06-10] MEDS: Metoprolol XL (24 HR) Succ 50 MG TAB.ER.24H PO SCH (08:48)
[2018-06-10] MEDS: Lisinopril 20 MG TABLET PO SCH (08:48)
[2018-06-10] MEDS: amLODIPine 5 MG TABLET PO SCH (08:49)
[2018-06-10] MEDS: Gabapentin 300 MG CAPSULE PO SCH ×2 (08:49→19:35)
[2018-06-10] MEDS: Lactobacillus 1 EACH CAP.SPRINK PO SCH ×2 (08:49→19:35)
[2018-06-10] MEDS: Cholecalciferol (D-3) 1,000 UNIT TABLET PO SCH (13:05)
--- NOTE | 2018-06-10 13:47 | Internal Med Progress Note ---
Addendum entered and electronically signed by Basil Fu MD 06/10/18 14:26: I have personally performed a face to face evaluation on this patient. I have r eviewed and agree with the care plan. History and Exam by me shows: Patient is doing generally well but still has loose stools diarrhea with each time she goes to the bathroom. She feels that she must urinate but has bowel movement, and she time. She talks about the test for a parasite or Giardia because of where she was at home and fact that this was negative before at the other facility. She denies other problems. Discussed care with other providers and/or nursing. Patient has no complaint of chest discomfort, dyspnea, orthopnea, palpitations, nausea or vomiting, constipation or diarrhea, other changes in bowel habits, difficulty with urination, rash or itching, or other new complaints, except as mentioned above. Review of systems is otherwise negative. Examination: (Except as mentioned above): General: In no apparent distress. Alert and oriented 3. Nondiaphoretic. Head: Atraumatic and normocephalic. Respiratory: No use of accessory muscles. Lungs are clear throughout. Normal airflow. Cardiovascular: Regular rate and rhythm without murmur appreciated. Abdomen: Bowel sounds are normal. No hepatosplenomegaly mass or tenderness appreciated. Obese and therefore difficult to palpate deeply. Extremities: No cyanosis clubbing or edema. Skin: Warm and non-diaphoretic with no new lesions noted. Original Note: Date of Encounter: 06/10/18 Time of Encounter: 13:45 - Assessment and plan (1) Status post total right knee replacement Current Visit: Yes Status: Acute Assessment and plan: continue PT and OT, will follow progress. pain controlled with current meds. follow up with ortho as scheduled. (2) Essential hypertension Current Visit: Yes Status: Chronic Assessment and plan: controlled with current meds. monitor BP. (3) Obesity (BMI 30.0-34.9) Current Visit: Yes Status: Chronic - Time Spent With Patient less than 15 minutes - Subjective Interval history: Participating well with therapy. States pain is controlled with current pain medication. Has bilateral lower extremity edema. Did receive her PRN Lasix t his morning. Remains in contact isolation for MRSA IN [place]. Denies fever, chills, nausea vomiting. States she is having small amount of loose stool every time she urinates. Maintaining appetite and hydration. - Constitutional Vitals: Temp Pulse Resp BP Pulse Ox 98.2 F 99 14 118/62 97 06/10/18 07:03 06/10/18 07:03 06/10/18 07:03 06/10/18 07:03 06/10/18 07:03 General appearance: Present: A&O X 0, A&O X 3, pleasant, no acute distress, obese, answers questions appropriately - Head Head exam: Present: atraumatic, normocephalic - Eye Eye exam: Present: PERRL, conjuntiva pink, sclera anicteric Pupils: Present: PERRL - Neck Neck exam general surgery: Present: supple, trachea midline. Absent: lymphadenopathy - Respiratory Respiratory exam: Present: CTAB. Absent: accessory muscle use, rales, rhonchi, wheezes - Cardiovascular Cardiovascular exam: Present: RRR, +S1, +S2. Absent: diastolic murmur, gallop, rubs, systolic murmur - GI/Abdominal GI/Abdominal exam: Present: normal bowel sounds, soft, no peritoneal signs. Absent: distended, tenderness - Extremities Exam Extremities exam: Present: warm, radial pulses palpable and symmetrical. Absent: calf tenderness, cyanotic, pedal edema Additional comments: Non-pitting edema to bilateral lower extremities. - Incison Comments: Right knee incision dressing dry and intact was surrounding edema present. - Neurological Exam Neurological exam: Present: CN II-XII intact, oriented X3, no focal deficits. Absent: pronater drift, facial droop, speech deficit - Skin Skin exam: Present: dry, intact Internal Medicine: Result - Labs CBC & Chem 7: 06/09/18 04:35 06/09/18 04:35 - ABG Interpretation ABG results: PT/INR, D-dimer PT 12.9 Seconds (9.4-12.1) H 06/07/18 04:55 - VTE Documentation of Mechanical Device: Intermittent pneumatic compression device Consult Discharge Plan - Plan Referrals: Altagracia Molina, SENIOR SALES CONSULTANT [Primary Care Provider] -
[2018-06-10] MEDS: rOPINIRole 1 MG TABLET PO SCH (19:35)
[2018-06-11] MEDS: *HR* OxyCODONE Immed Rel 5 MG TABLET PO PRN ×4 (01:23→20:36)
[2018-06-11] MEDS: Metoprolol XL (24 HR) Succ 50 MG TAB.ER.24H PO SCH (08:37)
[2018-06-11] MEDS: Gabapentin 300 MG CAPSULE PO SCH ×2 (08:37→20:36)
[2018-06-11] MEDS: Lactobacillus 1 EACH CAP.SPRINK PO SCH ×2 (08:37→20:35)
[2018-06-11] MEDS: amLODIPine 5 MG TABLET PO SCH (08:37)
[2018-06-11] MEDS: Lisinopril 20 MG TABLET PO SCH (08:38)
[2018-06-11] MEDS: Aspirin Enteric Coated 325 MG Tablet PO SCH ×2 (08:38→20:35)
[2018-06-11] MEDS: Furosemide 20 MG TABLET PO PRN (13:42)
--- NOTE | 2018-06-11 14:36 | Internal Med Progress Note ---
Addendum entered and electronically signed by Basil Fu MD 06/12/18 12:41: Multiple attempts to see patient were unsuccessful as she was in therapy and unavailable. Original Note: Date of Encounter: 06/11/18 Time of Encounter: 14:34 - Assessment and plan (1) Status post total right knee replacement Current Visit: Yes Status: Acute Assessment and plan: continue PT and OT, will follow progress. pain controlled with current meds. follow up with ortho as scheduled. (2) Essential hypertension Current Visit: Yes Status: Chronic Assessment and plan: controlled with current meds. monitor BP. (3) Obesity (BMI 30.0-34.9) Current Visit: Yes Status: Chronic - Time Spent With Patient less than 15 minutes - Subjective Interval history: Participating well with therapy. States pain is controlled with current pain medication. Has bilateral lower extremity edema. Remains in contact isolation for MRSA IN [place]. Denies fever, chills, nausea vomiting. Maintaining appetite and hydration. planning for discharge on 06/13/18 - Constitutional Vitals: Temp Pulse Resp BP Pulse Ox 99 F 100 16 137/66 95 06/11/18 07:02 06/11/18 07:02 06/11/18 07:02 06/11/18 07:02 06/11/18 07:02 General appearance: Present: A&O X 0, A&O X 3, pleasant, no acute distress, obese, answers questions appropriately - Head Head exam: Present: atraumatic, normocephalic - Eye Eye exam: Present: PERRL, conjuntiva pink, sclera anicteric Pupils: Present: PERRL - Neck Neck exam general surgery: Present: supple, trachea midline. Absent: lymphad enopathy - Respiratory Respiratory exam: Present: CTAB. Absent: accessory muscle use, rales, rhonchi, wheezes - Cardiovascular Cardiovascular exam: Present: RRR, +S1, +S2. Absent: diastolic murmur, gallop, rubs, systolic murmur - GI/Abdominal GI/Abdominal exam: Present: normal bowel sounds, soft, no peritoneal signs. Absent: distended, tenderness - Extremities Exam Extremities exam: Present: warm, radial pulses palpable and symmetrical. Absent: calf tenderness, cyanotic, pedal edema - Incison Comments: Right knee incision dressing dry and intact. No drainage. +1 pitting edema to right lower extremity, non-pitting edema to left lower extremity - Neurological Exam Neurological exam: Present: CN II-XII intact, oriented X3, no focal deficits. Absent: pronater drift, facial droop, speech deficit - Skin Skin exam: Present: dry, intact Internal Medicine: Result - Labs CBC & Chem 7: 06/09/18 04:35 06/09/18 04:35 - ABG Interpretation ABG results: PT/INR, D-dimer PT 12.9 Seconds (9.4-12.1) H 06/07/18 04:55 - VTE Documentation of Mechanical Device: Intermittent pneumatic compression device Consult Discharge Plan - Plan Referrals: Altagracia Molina NUTRITION HELPER [Primary Care Provider] -
[2018-06-11] MEDS: Cholecalciferol (D-3) 1,000 UNIT TABLET PO SCH (15:24)
[2018-06-11 15:58] LABS: Calcium 8.9 mg/dL (8.6-10.3); Potassium 4.9 mEq/L (3.5-5.1)
[2018-06-11] MEDS: rOPINIRole 1 MG TABLET PO SCH (20:35)
[2018-06-12] MEDS: *HR* OxyCODONE Immed Rel 5 MG TABLET PO PRN ×3 (05:08→23:56)
[2018-06-12] MEDS: Gabapentin 300 MG CAPSULE PO SCH ×2 (08:51→21:28)
[2018-06-12] MEDS: Lactobacillus 1 EACH CAP.SPRINK PO SCH ×2 (08:51→21:28)
[2018-06-12] MEDS: Lisinopril 20 MG TABLET PO SCH (08:51)
[2018-06-12] MEDS: amLODIPine 5 MG TABLET PO SCH (08:51)
[2018-06-12] MEDS: Metoprolol XL (24 HR) Succ 50 MG TAB.ER.24H PO SCH (08:51)
[2018-06-12] MEDS: Aspirin Enteric Coated 325 MG Tablet PO SCH ×2 (08:52→21:28)
--- NOTE | 2018-06-12 12:17 | Internal Med Progress Note ---
Addendum entered and electronically signed by Basil Fu MD 06/12/18 12:41: I have personally performed a face to face evaluation on this patient. I have r eviewed and agree with the care plan. History and Exam by me shows: Patient is feeling better and states that her bowels have been returned to nearly normal. She was pleased that C. difficile was negative. She denies problems and is been participating actively in therapy this morning. This is tired her out. However, she gave extra because she knew that she was going to see surgeon follow-up this afternoon. Discussed care with other providers and/or nursing. Patient has no complaint of chest discomfort, dyspnea, orthopnea, palpitations, nausea or vomiting, constipation or diarrhea, other changes in bowel habits, difficulty with urination, rash or itching, or other new complaints, except as mentioned above. Review of systems is otherwise negative. Examination: (Except as mentioned above): General: In no apparent distress. Alert and oriented 3. Nondiaphoretic. Head: Atraumatic and normocephalic. Respiratory: No use of accessory muscles. Lungs are clear throughout. Normal airflow. Cardiovascular: Regular rate and rhythm without murmur appreciated. Abdomen: Bowel sounds are normal. No hepatosplenomegaly mass or tenderness appreciated. Obese and therefore difficult to palpate deeply. Extremities: No cyanosis clubbing or edema. Skin: Warm and non-diaphoretic with no new lesions noted. Plan is for discharge tomorrow. She has no acute issues or problems or que stions. Original Note: Date of Encounter: 06/12/18 Time of Encounter: 12:15 - Assessment and plan (1) Status post total right knee replacement Current Visit: Yes Status: Acute Assessment and plan: No acute issues. Patient's right knee surgical incision appears healthy with dressing dry and intact. Patient states that her pain currently is tolerable with current medications. Patient using continuous icing and SCDs. Patient has participated in physical therapy and states that she is progressing well. (2) Edema of both lower extremities Current Visit: Yes Status: Chronic Assessment and plan: Patient with +1 edema to bilateral lower extremities and feet. Patient states history of chronic lymphedema. SCDs in use (3) Essential hypertension Current Visit: Yes Status: Chronic Assessment and plan: Vital signs are stable. We will continue with current medications. - Time Spent With Patient less than 15 minutes - Subjective Interval history: Patient appears relaxed currently denies any discomforts or shortness of breath. Patient states that her pain to her right knee has been minimal while at rest but increases during mobilization. Patient states that her pain has been well- controlled with current medications. Patient states she continues to have slight increase in edema to bilateral lower legs, but that she has been effectively using her SCDs for treatment while in bed. Patient with history of chronic lymphedema - Constitutional Vitals: Temp Pulse Resp BP Pulse Ox 97.6 F 94 16 120/72 94 06/12/18 07:35 06/12/18 07:35 06/12/18 07:35 06/12/18 07:35 06/12/18 07:35 General appearance: Present: A&O X 0, A&O X 3, pleasant, no acute distress, obese, answers questions appropriately - Head Head exam: Present: atraumatic, normocephalic - Eye Eye exam: Present: PERRL, conjuntiva pink, sclera anicteric Pupils: Present: PERRL - Neck Neck exam general surgery: Present: supple, trachea midline. Absent: lymphadenopathy - Respiratory Respiratory exam: Present: CTAB. Absent: accessory muscle use, rales, rhonchi, wheezes - Cardiovascular Cardiovascular exam: Present: RRR, +S1, +S2. Absent: diastolic murmur, gallop, rubs, systolic murmur - GI/Abdominal GI/Abdominal exam: Present: normal bowel sounds, soft, no peritoneal signs. Absent: distended, tenderness - Extremities Exam Extremities exam: Present: pedal edema, warm, radial pulses palpable and symmetrical. Absent: calf tenderness, cyanotic Additional comments: Patient with +1 edema to bilateral lower extremities. SCDs in use. Right knee midline surgical incision appears healthy and intact. Continuous icing in use - Neurological Exam Neurological exam: Present: CN II-XII intact, oriented X3, no focal deficits. Absent: pronater drift, facial droop, speech deficit - Skin Skin exam: Present: dry, intact Internal Medicine: Result - Labs CBC & Chem 7: 06/09/18 04:35 06/11/18 15:30 Labs: BMP 06/11/18 15:30 Sodium 138 Potassium 4.9 Chloride 107 Carbon Dioxide 24 BUN 57 H Creatinine 1.61 H Glucose 140 H Calcium 8.9 - ABG Interpretation ABG results: PT/INR, D-dimer PT 12.9 Seconds (9.4-12.1) H 06/07/18 04:55 - VTE Documentation of Mechanical Device: Intermittent pneumatic compression device Consult Discharge Plan - Plan Referrals: Altagracia Molina, FACILITY PLANNER [Primary Care Provider] -
[2018-06-12] MEDS: Cholecalciferol (D-3) 1,000 UNIT TABLET PO SCH (13:24)
[2018-06-12] MEDS: rOPINIRole 1 MG TABLET PO SCH (21:28)
[2018-06-13 07:04] VITALS: BP 146/75
[2018-06-13] MEDS: *HR* OxyCODONE Immed Rel 5 MG TABLET PO PRN ×2 (07:54→13:15)
[2018-06-13] MEDS: Aspirin Enteric Coated 325 MG Tablet PO SCH (09:35)
[2018-06-13] MEDS: Lactobacillus 1 EACH CAP.SPRINK PO SCH (09:35)
[2018-06-13] MEDS: amLODIPine 5 MG TABLET PO SCH (09:35)
[2018-06-13] MEDS: Lisinopril 20 MG TABLET PO SCH (09:35)
[2018-06-13] MEDS: Gabapentin 300 MG CAPSULE PO SCH (09:35)
[2018-06-13] MEDS: Metoprolol XL (24 HR) Succ 50 MG TAB.ER.24H PO SCH (09:35)
[2018-06-13] MEDS: Cholecalciferol (D-3) 1,000 UNIT TABLET PO SCH (12:23)
--- NOTE | 2018-06-13 13:27 | Discharge Summary ---
Addendum entered and electronically signed by Basil Fu MD 06/13/18 14:14: I have personally performed a face to face evaluation on this patient. I have r eviewed and agree with the care plan. History and Exam by me shows: Patient is doing well and feels like she had a good therapy session, "finally, able to take steps on my own." Bowels are returning to normal and she has no problems with nausea or abdominal pain, etc. Questions about discharge were answered and she has none at the end of visit. Discussed care with other providers and/or nursing. Patient has no complaint of chest discomfort, dyspnea, orthopnea, palpitations, nausea or vomiting, constipation or diarrhea, other changes in bowel habits, difficulty with urination, rash or itching, or other new complaints, except as mentioned above. Review of systems is otherwise negative. Examination: (Except as mentioned above): General: In no apparent distress. Alert and oriented 3. Nondiaphoretic. Head: Atraumatic and normocephalic. Respiratory: No use of accessory muscles. Lungs are clear throughout. Normal airflow. Cardiovascular: Regular rate and rhythm without murmur appreciated. Abdomen: Bowel sounds are normal. No hepatosplenomegaly mass or tenderness appreciated. Morbidly obese and therefore difficult to palpate deeply. Extremities: No cyanosis clubbing or change in edema. Skin: Warm and non-diaphoretic with no new lesions noted. She has been told when she may resume her wraps as ordered by her surgeons. Original Note: Orders not resulted at time of discharge: Pending orders 06/13/18 08:23 CBC no Diff [Complete Blood Count w/o Diff] [HEME] Routine Date of Encounter: 06/13/18 Time of Encounter: 13:25 - Discharge Diagnosis (1) Status post total right knee replacement Priority: Primary Status: Acute Comments: Patient was transferred to our facility for physical therapy following a right total knee replacement. Patient's midline surgical incision to right knee appears healthy and intact. Patient continues with continuous icing while in bed. States her pain has been tolerable with current pain medications. Patient progressed well with physical therapy was observed ambulating in [place] with a walker. Patient is continue follow-up with orthopedic surgeon and PCP after discharge. (2) Edema of both lower extremities Priority: Secondary Status: Chronic Comments: Patient continues with chronic lymphedema to bilateral lower extremities. Patient has had SCDs in use along with AIME hose. We will continue with current medications and follow-up with PCP for further management. (3) Essential hypertension Priority: Secondary Status: Chronic Comments: No acute issues during her stay at this facility. Vital signs remained stable. We will continue with home medications and follow-up with PCP for further management. Hospital course: Ms. Haddad is a 72 year old female, who had a right total knee replacement and an area hospital. Patient was transferred to this facility after a uneventful recovery for further physical therapy due to weakness secondary to her he replacement. Patient has a history of chronic lymphedema, diabetes and hypertension. Patient has progressed well during her stay at this facility in therapy, noted ambulating and all with walker. Patient states that her pain has been fairly well-controlled with current medications. Right knee surgical incision appears healthy and intact. Patient continues to have +1 pitting edema to bilateral lower extremities. Patient with AIME hose and SCDs in use. Patient also using continuous icing to right knee whenever in bed. Patient's glucose has been very well-controlled during her stay. No other current issues noted. Patient is continue her physical therapy as an outpatient at this facility. Patient is recommended to continue follow-up with her orthopedic surgeon and family physician within one week. Discharge discussed with: patient Time spent discussing smoking cessation with patient: 3 to 10 minutes - Time Spent with Patient Total time spent providing and/or coordinating discharge services: Less than 30 minutes - Discharge Medications Home Medications: Amlodipine Besylate/Benazepril [Lotrel 5-40 mg Capsule] 1 each PO DAILY 12/11/17 [History] Calcitriol [Rocaltrol] 0.25 mcg PO MOWEFR 12/11/17 [History] Calcium Lactate 100 mg PO AD 12/11/17 [History] Coconut Oil 2,000 mg PO BID 12/11/17 [History] Ergocalciferol (VITAMIN D2) [Vitamin D2] 2,000 unit PO 1200 12/11/17 [History] Furosemide [Lasix] 40 mg PO QAM PRN 12/11/17 [History] Lactobac/Bifidobac/Glob Pr Con [Ultra Arielle Plus Capsule] 1 each PO DAILY 12/11/17 [History] Metoprolol Succinate 100 mg PO DAILY 12/11/17 [History] Omeprazole [PriLOSEC] 20 mg PO DAILY PRN 12/11/17 [History] Tramadol HCl [Ultram] 50 mg PO Q6H 12/11/17 [History] Aspirin Enteric Coated [Aspirin EC] 325 mg PO BID #20 tablet. 06/04/18 [Rx] Diphenoxylate/Atropine [Lomotil 2.5 mg/0.025 mg] 1 tab PO QID PRN 06/04/18 [History] Furosemide [Lasix] 40 mg PO DAILY PRN 06/04/18 [History] Gabapentin [Neurontin] 300 mg PO QPM 06/04/18 [History] Gabapentin [Neurontin] 600 mg PO HS 06/04/18 [History] Ropinirole HCl [Requip] 2 mg PO TID 06/04/18 [History] Allergies/Adverse Reactions: Allergy/AdvReac Type Severity Reaction Status Date / Time pioglitazone Allergy Swelling Verified 06/04/18 11:47 of Lip/Tongue/Throat Sulfa (Sulfonamide Allergy See Verified 06/04/18 11:47 Antibiotics) Comments sulfamethoxazole Allergy Redness of Verified 06/04/18 11:47 [From Bactrim] Skin trimethoprim [From Bactrim] Allergy Redness of Verified 06/04/18 11:47 Skin Amoxicillin [From Augmentin] AdvReac Diarrhea Verified 06/04/18 11:47 clavulanic acid AdvReac Diarrhea Verified 06/04/18 11:47 [From Augmentin] gabapentin AdvReac Nausea Verified 06/04/18 11:47 metformin AdvReac Diarrhea Verified 06/04/18 11:47 pregabalin [From Lyrica] AdvReac See Verified 06/04/18 11:47 Comments Date of admission: 06/06/18 18:34 Primary care physician: Altagracia Molina CNP Consults: 06/06/18 18:59 Consult to Occupational Therapy [CONS] Routine Comment: Evaluate, develop and implement POC Reason for Consult: rehab rtkr Does patient have active BEDREST order?: No Is patient medically & hemodynamically stable?: Yes Patient assessed for mobility or mobilized this visit?: No Consult to Physical Medicine/Rehab [CONS] Routine Reason for Consult: rehab rtkr Call Completed: No Consult to Physical Therapy [CONS] Routine Comment: Evaluate, develop and implement POC Reason for Consult: rehab rtkr Does patient have active BEDREST order?: No Is patient medically & hemodynamically stable?: Yes Patient assessed for mobility or mobilized this visit?: No Consult to Recreational Therapy [CONS] Routine Comment: Evaluate, develop and implement POC Consult to [place] [CONS] Routine Reason for SW Consult: discharge planning 06/06/18 19:04 Consult to Pastoral Services [CONS] Routine Comment: patient request, is scientology Discharging clinician: Basil Fu - Constitutional Vitals: Temp Pulse Resp BP Pulse Ox 98 F 94 16 146/75 94 06/13/18 07:03 06/13/18 07:03 06/13/18 07:03 06/13/18 07:03 06/13/18 07:03 General appearance: Present: A&O X 0, A&O X 3, pleasant, no acute distress, obese, answers questions appropriately - Head Head exam: Present: atraumatic, normocephalic - Eye Eye exam: Present: PERRL, conjuntiva pink, sclera anicteric Pupils: Present: PERRL - Neck Neck exam general surgery: Present: supple, trachea midline. Absent: lymphadenopathy - Respiratory Respiratory exam: Present: CTAB. Absent: accessory muscle use, rales, rhonchi, wheezes - Cardiovascular Cardiovascular exam: Present: RRR, +S1, +S2. Absent: diastolic murmur, gallop, rubs, systolic murmur - GI/Abdominal GI/Abdominal exam: Present: normal bowel sounds, soft, no peritoneal signs. Absent: distended, tenderness - Extremities Exam Extremities exam: Present: pedal edema, warm, radial pulses palpable and symmetrical. Absent: calf tenderness, cyanotic Additional comments: Right knee with midline incision, which appears dry and intact. No ecchymosis or erythema noted. Patient with +1 pitting edema to bilateral lower extrem ities. - Neurological Exam Neurological exam: Present: CN II-XII intact, oriented X3, no focal deficits. Absent: pronater drift, facial droop, speech deficit - Skin Skin exam: Present: dry, intact - Patient Status Disposition: Home Health Service Condition: Good Functional capacity at discharge: uses cane/walker Overall status at discharge: patient is progressing back to baseline - Discharge Instructions Follow Up With: Altagracia Molina CNP [Primary Care Provider] - 06/16/18 10:45 am - Diet and Activity Activity: ambulate only with your walker, as per physical therapy, increase activity as tolerated Diet: diabetic diet, low fat, low cholesterol, low salt diet, regular diet - VTE Documentation of Mechanical Device: Intermittent pneumatic compression device
== END 2018-06-13 14:38 | disposition home health service (06) | DRG 561 ==
LOC: INPGRE 18:34

== ENCOUNTER 2020-01-06 14:45 | Inpatient (IN) ==
[2020-01-08] MEDS ORDERED: Acetaminophen 325 MG TABLET PO PRN (18:47)
[2020-01-08] MEDS: Apixaban 5 MG TABLET PO SCH (23:16)
[2020-01-08] MEDS: *HR* OxyCODONE Immed Rel 5 MG TABLET PO PRN (23:17)
[2020-01-08] MEDS: Gabapentin 300 MG CAPSULE PO SCH (23:17)
[2020-01-08] MEDS: rOPINIRole 1 MG TABLET PO SCH (23:17)
[2020-01-09] MEDS: rOPINIRole 1 MG TABLET PO SCH ×3 (01:09→22:52)
[2020-01-09] MEDS ORDERED: *HR* OxyCODONE Immed Rel 5 MG TABLET PO ONE (02:41)
[2020-01-09] MEDS: *HR* OxyCODONE Immed Rel 5 MG TABLET PO PRN ×4 (05:16→20:29)
[2020-01-09 07:13] LABS: Basophils % 0.4 %; Eosinophils # 0.3 K/mcL (0.0-0.6); Eosinophils % 2.7 %; Hematocrit 29.9 % (35.3-44.9); Hemoglobin 9.4 g/dL (11.5-15.4); Immature Granulocytes % 0.4 % (0-4); Lymphocytes % 10.6 %; Mean Corpuscular HGB Conc 31.4 g/dL (31.6-35.5); Mean Corpuscular Hemoglobin 30.3 pg (28.0-33.3); Mean Corpuscular Volume 96.5 fL (83.0-100.0); Mean Platelet Volume 9.6 fL (9.4-12.4); Monocytes # 0.8 K/mcL (0.0-1.3); Monocytes % 8.5 %; Neutrophils # 7.1 K/mcL (1.6-8.9); Platelet Count 216 K/mcL (140-400); Red Cell Distribution Width 14.8 % (11.5-14.5); Segmented Neutrophils % 77.4 %; White Blood Count 9.1 K/mcL (4.3-11.1)
[2020-01-09 07:32] LABS: Albumin 3.6 g/dL (3.5-5.7); Albumin/Globulin Ratio 1.2 (1.1-2.2); Bilirubin,Total 0.8 mg/dL (0.3-1.0); Calcium 8.9 mg/dL (8.6-10.3); Globulin 3.1 g/dL (2.4-3.5); Magnesium 1.9 mg/dL (1.6-2.6); Potassium 4.5 mEq/L (3.5-5.1); Total Protein 6.7 g/dL (6.4-8.9)
[2020-01-09] MEDS ORDERED: PLEXUS SLIM PO SCH (09:00)
[2020-01-09] MEDS ORDERED: COCONUT OIL 2000 MG PO SCH (09:00)
[2020-01-09] MEDS: Furosemide 40 MG TABLET PO SCH ×2 (09:50→18:00)
[2020-01-09] MEDS: Apixaban 5 MG TABLET PO SCH ×2 (09:51→20:29)
[2020-01-09] MEDS: Aspirin Enteric Coated 81 MG Tablet PO SCH (09:51)
[2020-01-09] MEDS: Cholecalciferol (D-3) 1,000 UNIT (25MCG) TABLET PO SCH (09:51)
[2020-01-09] MEDS: Metoprolol XL (24 HR) Succ 50 MG TAB.ER.24H PO SCH (09:51)
[2020-01-09] MEDS: Gabapentin 300 MG CAPSULE PO SCH ×4 (09:51→20:29)
[2020-01-09] MEDS: DilTIAZem CD (24hr) 180 MG CAP.ER.24H PO SCH (09:51)
[2020-01-09] MEDS: Lactobacillus 1 EACH CAP.SPRINK PO SCH (09:51)
[2020-01-09] MEDS: (Ubidecarenone [Co Q-10] 200 MG) PO SCH (09:52)
[2020-01-09] MEDS: tiZANidine 4 MG TABLET PO PRN (17:59)
[2020-01-10] MEDS: rOPINIRole 1 MG TABLET PO SCH ×3 (01:02→21:06)
[2020-01-10] MEDS: *HR* OxyCODONE Immed Rel 5 MG TABLET PO PRN ×2 (04:58→20:39)
[2020-01-10 06:04] LABS: Hematocrit 27.7 % (35.3-44.9); Hemoglobin 8.8 g/dL (11.5-15.4); Mean Corpuscular HGB Conc 31.8 g/dL (31.6-35.5); Mean Corpuscular Volume 97.5 fL (83.0-100.0); Mean Platelet Volume 9.5 fL (9.4-12.4); Platelet Count 217 K/mcL (140-400); Red Blood Count 2.84 M/mcL (3.82-4.97); Red Cell Distribution Width 14.7 % (11.5-14.5); White Blood Count 7.8 K/mcL (4.3-11.1)
[2020-01-10 06:46] LABS: Albumin 3.3 g/dL (3.5-5.7); Albumin/Globulin Ratio 1.1 (1.1-2.2); Bilirubin,Total 0.7 mg/dL (0.3-1.0); Calcium 8.4 mg/dL (8.6-10.3); Globulin 2.9 g/dL (2.4-3.5); Magnesium 1.9 mg/dL (1.6-2.6); Potassium 4.4 mEq/L (3.5-5.1); Total Protein 6.2 g/dL (6.4-8.9)
[2020-01-10] MEDS: Gabapentin 300 MG CAPSULE PO SCH ×4 (08:03→20:39)
[2020-01-10] MEDS: Apixaban 5 MG TABLET PO SCH ×2 (08:03→20:40)
[2020-01-10] MEDS: Cholecalciferol (D-3) 1,000 UNIT (25MCG) TABLET PO SCH (08:03)
[2020-01-10] MEDS: Aspirin Enteric Coated 81 MG Tablet PO SCH (08:04)
[2020-01-10] MEDS: Furosemide 40 MG TABLET PO SCH ×2 (08:04→17:27)
[2020-01-10] MEDS: Metoprolol XL (24 HR) Succ 50 MG TAB.ER.24H PO SCH (08:04)
[2020-01-10] MEDS: DilTIAZem CD (24hr) 180 MG CAP.ER.24H PO SCH (08:04)
[2020-01-10] MEDS: Lactobacillus 1 EACH CAP.SPRINK PO SCH (08:04)
[2020-01-10] MEDS: (Ubidecarenone [Co Q-10] 200 MG) PO SCH (08:05)
[2020-01-10] MEDS: tiZANidine 4 MG TABLET PO PRN (08:13)
[2020-01-11] MEDS: rOPINIRole 1 MG TABLET PO SCH ×3 (01:22→21:58)
[2020-01-11] MEDS: *HR* OxyCODONE Immed Rel 5 MG TABLET PO PRN ×4 (05:27→21:58)
[2020-01-11] MEDS: Lactobacillus 1 EACH CAP.SPRINK PO SCH (07:42)
[2020-01-11] MEDS: DilTIAZem CD (24hr) 180 MG CAP.ER.24H PO SCH (07:42)
[2020-01-11] MEDS: Furosemide 40 MG TABLET PO SCH ×2 (07:42→17:48)
[2020-01-11] MEDS: Aspirin Enteric Coated 81 MG Tablet PO SCH (07:42)
[2020-01-11] MEDS: Metoprolol XL (24 HR) Succ 50 MG TAB.ER.24H PO SCH (07:43)
[2020-01-11] MEDS: Gabapentin 300 MG CAPSULE PO SCH ×4 (07:43→21:58)
[2020-01-11] MEDS: Cholecalciferol (D-3) 1,000 UNIT (25MCG) TABLET PO SCH (07:43)
[2020-01-11] MEDS: Apixaban 5 MG TABLET PO SCH ×2 (07:43→21:57)
[2020-01-11] MEDS: (Ubidecarenone [Co Q-10] 200 MG) PO SCH (07:44)
[2020-01-11] MEDS: calcitrioL 0.25 MCG CAPSULE PO SCH (07:45)
[2020-01-11] MEDS ORDERED: D5% in Water 1,000 ML IVC PRN (12:07)
[2020-01-11] MEDS ORDERED: *HR* Dextrose 50 % in Water (Vial) 50 ML VIAL IVP PRN (12:07)
[2020-01-11] MEDS ORDERED: Dextrose Gel 15 GM/37.5 ML TUBE PO PRN ×2 (12:07)
[2020-01-11] MEDS: Insulin LISPRO 300 UNITS/3 ML VIAL SQ SCH ×2 (18:07→22:10)
[2020-01-11] MEDS: polyethylene glycoL 3350 17 GM POWD.PACK PO PRN (22:10)
[2020-01-12] MEDS: rOPINIRole 1 MG TABLET PO SCH ×3 (00:15→22:35)
[2020-01-12] MEDS: tiZANidine 4 MG TABLET PO PRN ×2 (04:14→22:35)
[2020-01-12] MEDS: *HR* OxyCODONE Immed Rel 5 MG TABLET PO PRN ×2 (04:15→21:13)
[2020-01-12 05:16] LABS: Hematocrit 26.9 % (35.3-44.9); Hemoglobin 8.6 g/dL (11.5-15.4); Mean Corpuscular Hemoglobin 30.6 pg (28.0-33.3); Mean Corpuscular Volume 95.7 fL (83.0-100.0); Mean Platelet Volume 9.2 fL (9.4-12.4); Platelet Count 262 K/mcL (140-400); Red Blood Count 2.81 M/mcL (3.82-4.97); Red Cell Distribution Width 14.6 % (11.5-14.5); White Blood Count 7.7 K/mcL (4.3-11.1)
[2020-01-12 05:33] LABS: Albumin 3.1 g/dL (3.5-5.7); Albumin/Globulin Ratio 1.1 (1.1-2.2); Bilirubin,Total 0.7 mg/dL (0.3-1.0); Calcium 8.5 mg/dL (8.6-10.3); Globulin 2.8 g/dL (2.4-3.5); Magnesium 1.7 mg/dL (1.6-2.6); Potassium 4.1 mEq/L (3.5-5.1); Total Protein 5.9 g/dL (6.4-8.9)
[2020-01-12] MEDS: Furosemide 40 MG TABLET PO SCH ×2 (08:36→17:11)
[2020-01-12] MEDS: Gabapentin 300 MG CAPSULE PO SCH ×4 (08:37→21:13)
[2020-01-12] MEDS: DilTIAZem CD (24hr) 180 MG CAP.ER.24H PO SCH (08:38)
[2020-01-12] MEDS: Metoprolol XL (24 HR) Succ 50 MG TAB.ER.24H PO SCH (08:38)
[2020-01-12] MEDS: Lactobacillus 1 EACH CAP.SPRINK PO SCH (08:38)
[2020-01-12] MEDS: Cholecalciferol (D-3) 1,000 UNIT (25MCG) TABLET PO SCH (08:39)
[2020-01-12] MEDS: Apixaban 5 MG TABLET PO SCH ×2 (08:39→21:14)
[2020-01-12] MEDS: Aspirin Enteric Coated 81 MG Tablet PO SCH (08:39)
[2020-01-12] MEDS: Insulin LISPRO 300 UNITS/3 ML VIAL SQ SCH ×4 (08:42→21:14)
[2020-01-12] MEDS: (Ubidecarenone [Co Q-10] 200 MG) PO SCH (08:44)
[2020-01-12] MEDS: polyethylene glycoL 3350 17 GM POWD.PACK PO PRN (11:40)
[2020-01-12] MEDS ORDERED: polyethylene glycoL 3350 17 GM POWD.PACK PO PRN (12:37)
[2020-01-12] MEDS ORDERED: Bisacodyl 10 MG RECTAL SUPPOSITORY RC PRN (17:41)
[2020-01-12] MEDS: Sennosides/Docusate Sodium TABLET PO SCH (21:13)
[2020-01-13] MEDS: rOPINIRole 1 MG TABLET PO SCH ×3 (00:56→22:43)
[2020-01-13] MEDS: *HR* OxyCODONE Immed Rel 5 MG TABLET PO PRN ×2 (02:21→06:40)
[2020-01-13] MEDS: Insulin LISPRO 300 UNITS/3 ML VIAL SQ SCH ×4 (07:56→22:45)
[2020-01-13] MEDS: DilTIAZem CD (24hr) 180 MG CAP.ER.24H PO SCH (08:05)
[2020-01-13] MEDS: Sennosides/Docusate Sodium TABLET PO SCH ×2 (08:06→22:43)
[2020-01-13] MEDS: Apixaban 5 MG TABLET PO SCH ×2 (08:06→22:42)
[2020-01-13] MEDS: Furosemide 40 MG TABLET PO SCH ×2 (08:06→18:04)
[2020-01-13] MEDS: Metoprolol XL (24 HR) Succ 50 MG TAB.ER.24H PO SCH (08:06)
[2020-01-13] MEDS: Aspirin Enteric Coated 81 MG Tablet PO SCH (08:06)
[2020-01-13] MEDS: Gabapentin 300 MG CAPSULE PO SCH ×4 (08:06→22:42)
[2020-01-13] MEDS: Lactobacillus 1 EACH CAP.SPRINK PO SCH (08:07)
[2020-01-13] MEDS: calcitrioL 0.25 MCG CAPSULE PO SCH (08:07)
[2020-01-13] MEDS: Cholecalciferol (D-3) 1,000 UNIT (25MCG) TABLET PO SCH (08:07)
[2020-01-13] MEDS: tiZANidine 4 MG TABLET PO PRN ×2 (08:07→22:44)
[2020-01-13] MEDS: (Ubidecarenone [Co Q-10] 200 MG) PO SCH (08:11)
[2020-01-13 11:23] LABS: Basophils % 0.4 %; Eosinophils # 0.4 K/mcL (0.0-0.6); Hematocrit 30.9 % (35.3-44.9); Hemoglobin 9.8 g/dL (11.5-15.4); Immature Granulocytes % 0.8 % (0-4); Lymphocytes # 0.8 K/mcL (0.6-4.6); Lymphocytes % 10.7 %; Mean Corpuscular HGB Conc 31.7 g/dL (31.6-35.5); Mean Corpuscular Hemoglobin 30.2 pg (28.0-33.3); Mean Corpuscular Volume 95.1 fL (83.0-100.0); Mean Platelet Volume 9.1 fL (9.4-12.4); Monocytes # 0.7 K/mcL (0.0-1.3); Monocytes % 10.1 %; Neutrophils # 5.2 K/mcL (1.6-8.9); Platelet Count 318 K/mcL (140-400); Red Blood Count 3.25 M/mcL (3.82-4.97); Red Cell Distribution Width 14.6 % (11.5-14.5); White Blood Count 7.2 K/mcL (4.3-11.1)
[2020-01-13 11:41] LABS: Potassium 3.9 mEq/L (3.5-5.1)
[2020-01-14] MEDS: rOPINIRole 1 MG TABLET PO SCH ×3 (00:15→23:16)
[2020-01-14] MEDS: *HR* OxyCODONE Immed Rel 5 MG TABLET PO PRN ×3 (05:21→23:16)
[2020-01-14] MEDS: Sennosides/Docusate Sodium TABLET PO SCH ×2 (09:07→23:16)
[2020-01-14] MEDS: Aspirin Enteric Coated 81 MG Tablet PO SCH (09:08)
[2020-01-14] MEDS: Furosemide 40 MG TABLET PO SCH ×2 (09:08→17:33)
[2020-01-14] MEDS: Gabapentin 300 MG CAPSULE PO SCH ×4 (09:08→23:16)
[2020-01-14] MEDS: Lactobacillus 1 EACH CAP.SPRINK PO SCH (09:08)
[2020-01-14] MEDS: DilTIAZem CD (24hr) 180 MG CAP.ER.24H PO SCH (09:09)
[2020-01-14] MEDS: Apixaban 5 MG TABLET PO SCH ×2 (09:09→23:16)
[2020-01-14] MEDS: Metoprolol XL (24 HR) Succ 50 MG TAB.ER.24H PO SCH (09:09)
[2020-01-14] MEDS: (Ubidecarenone [Co Q-10] 200 MG) PO SCH (09:09)
[2020-01-14] MEDS: Cholecalciferol (D-3) 1,000 UNIT (25MCG) TABLET PO SCH (09:10)
[2020-01-14] MEDS: Insulin LISPRO 300 UNITS/3 ML VIAL SQ SCH ×4 (09:18→23:15)
[2020-01-14] MEDS: tiZANidine 4 MG TABLET PO PRN (17:33)
[2020-01-15] MEDS: rOPINIRole 1 MG TABLET PO SCH ×2 (00:55→17:29)
[2020-01-15] MEDS: tiZANidine 4 MG TABLET PO PRN ×2 (04:04→11:31)
[2020-01-15] MEDS: Metoprolol XL (24 HR) Succ 50 MG TAB.ER.24H PO SCH (09:38)
[2020-01-15] MEDS: Sennosides/Docusate Sodium TABLET PO SCH ×2 (09:39→21:30)
[2020-01-15] MEDS: Furosemide 40 MG TABLET PO SCH ×2 (09:39→17:29)
[2020-01-15] MEDS: Apixaban 5 MG TABLET PO SCH ×2 (09:39→21:32)
[2020-01-15] MEDS: DilTIAZem CD (24hr) 180 MG CAP.ER.24H PO SCH (09:39)
[2020-01-15] MEDS: Aspirin Enteric Coated 81 MG Tablet PO SCH (09:40)
[2020-01-15] MEDS: Gabapentin 300 MG CAPSULE PO SCH ×4 (09:40→21:30)
[2020-01-15] MEDS: Cholecalciferol (D-3) 1,000 UNIT (25MCG) TABLET PO SCH (09:40)
[2020-01-15] MEDS: Lactobacillus 1 EACH CAP.SPRINK PO SCH (09:40)
[2020-01-15] MEDS: Insulin LISPRO 300 UNITS/3 ML VIAL SQ SCH ×4 (09:45→21:33)
[2020-01-15] MEDS: (Ubidecarenone [Co Q-10] 200 MG) PO SCH (09:52)
[2020-01-15] MEDS: calcitrioL 0.25 MCG CAPSULE PO SCH (11:58)
[2020-01-15] MEDS: *HR* OxyCODONE Immed Rel 5 MG TABLET PO PRN ×2 (13:15→21:32)
[2020-01-16] MEDS: rOPINIRole 1 MG TABLET PO SCH ×5 (01:17→23:50)
[2020-01-16] MEDS: Melatonin 3 MG TABLET PO PRN ×2 (01:18→23:49)
[2020-01-16] MEDS: tiZANidine 4 MG TABLET PO PRN ×3 (06:25→23:07)
[2020-01-16] MEDS: Insulin LISPRO 300 UNITS/3 ML VIAL SQ SCH ×4 (08:35→22:09)
[2020-01-16] MEDS: Furosemide 40 MG TABLET PO SCH ×2 (08:37→17:27)
[2020-01-16] MEDS: Aspirin Enteric Coated 81 MG Tablet PO SCH (08:41)
[2020-01-16] MEDS: Gabapentin 300 MG CAPSULE PO SCH ×4 (08:41→22:08)
[2020-01-16] MEDS: Lactobacillus 1 EACH CAP.SPRINK PO SCH (08:41)
[2020-01-16] MEDS: Apixaban 5 MG TABLET PO SCH ×2 (08:42→22:09)
[2020-01-16] MEDS: Sennosides/Docusate Sodium TABLET PO SCH ×2 (08:43→22:09)
[2020-01-16] MEDS: DilTIAZem CD (24hr) 180 MG CAP.ER.24H PO SCH (08:43)
[2020-01-16] MEDS: (Ubidecarenone [Co Q-10] 200 MG) PO SCH (08:43)
[2020-01-16] MEDS: Metoprolol XL (24 HR) Succ 50 MG TAB.ER.24H PO SCH ×3 (08:44→11:40)
[2020-01-16] MEDS: Cholecalciferol (D-3) 1,000 UNIT (25MCG) TABLET PO SCH (08:44)
[2020-01-16] MEDS: *HR* OxyCODONE Immed Rel 5 MG TABLET PO PRN ×3 (08:56→22:13)
[2020-01-17] MEDS: *HR* OxyCODONE Immed Rel 5 MG TABLET PO PRN ×3 (06:00→20:11)
[2020-01-17] MEDS: Gabapentin 300 MG CAPSULE PO SCH ×4 (08:56→20:11)
[2020-01-17] MEDS: Furosemide 40 MG TABLET PO SCH ×2 (08:56→17:14)
[2020-01-17] MEDS: Apixaban 5 MG TABLET PO SCH ×2 (08:56→20:11)
[2020-01-17] MEDS: DilTIAZem CD (24hr) 180 MG CAP.ER.24H PO SCH (08:57)
[2020-01-17] MEDS: Sennosides/Docusate Sodium TABLET PO SCH ×2 (08:59→20:10)
[2020-01-17] MEDS: Aspirin Enteric Coated 81 MG Tablet PO SCH (08:59)
[2020-01-17] MEDS: Lactobacillus 1 EACH CAP.SPRINK PO SCH (08:59)
[2020-01-17] MEDS: Cholecalciferol (D-3) 1,000 UNIT (25MCG) TABLET PO SCH (09:00)
[2020-01-17] MEDS: (Ubidecarenone [Co Q-10] 200 MG) PO SCH (09:01)
[2020-01-17] MEDS: Insulin LISPRO 300 UNITS/3 ML VIAL SQ SCH ×4 (09:02→20:15)
[2020-01-17] MEDS: tiZANidine 4 MG TABLET PO PRN ×2 (12:32→20:10)
[2020-01-17] MEDS: rOPINIRole 1 MG TABLET PO SCH ×3 (17:15→23:46)
[2020-01-18] MEDS: *HR* OxyCODONE Immed Rel 5 MG TABLET PO PRN ×2 (04:27→09:34)
[2020-01-18 05:26] LABS: Basophils % 0.5 %; Eosinophils # 0.6 K/mcL (0.0-0.6); Eosinophils % 7.6 %; Hematocrit 29.9 % (35.3-44.9); Hemoglobin 9.4 g/dL (11.5-15.4); Immature Granulocytes % 0.7 % (0-4); Lymphocytes # 0.9 K/mcL (0.6-4.6); Lymphocytes % 11.6 %; Mean Corpuscular HGB Conc 31.4 g/dL (31.6-35.5); Mean Corpuscular Hemoglobin 30.5 pg (28.0-33.3); Mean Corpuscular Volume 97.1 fL (83.0-100.0); Mean Platelet Volume 9.4 fL (9.4-12.4); Monocytes # 0.6 K/mcL (0.0-1.3); Monocytes % 8.3 %; Neutrophils # 5.2 K/mcL (1.6-8.9); Platelet Count 330 K/mcL (140-400); Red Blood Count 3.08 M/mcL (3.82-4.97); Red Cell Distribution Width 14.7 % (11.5-14.5); Segmented Neutrophils % 71.3 %; White Blood Count 7.3 K/mcL (4.3-11.1)
[2020-01-18 05:39] LABS: Calcium 8.9 mg/dL (8.6-10.3); Potassium 4.2 mEq/L (3.5-5.1)
[2020-01-18 07:31] VITALS: BP 129/57
[2020-01-18] MEDS: (Ubidecarenone [Co Q-10] 200 MG) PO SCH (09:30)
[2020-01-18] MEDS: Insulin LISPRO 300 UNITS/3 ML VIAL SQ SCH ×2 (09:33→13:11)
[2020-01-18] MEDS: Sennosides/Docusate Sodium TABLET PO SCH (09:33)
[2020-01-18] MEDS: Gabapentin 300 MG CAPSULE PO SCH ×2 (09:33→13:12)
[2020-01-18] MEDS: DilTIAZem CD (24hr) 180 MG CAP.ER.24H PO SCH (09:33)
[2020-01-18] MEDS: Cholecalciferol (D-3) 1,000 UNIT (25MCG) TABLET PO SCH (09:34)
[2020-01-18] MEDS: Lactobacillus 1 EACH CAP.SPRINK PO SCH (09:34)
[2020-01-18] MEDS: Furosemide 40 MG TABLET PO SCH (09:34)
[2020-01-18] MEDS: calcitrioL 0.25 MCG CAPSULE PO SCH (09:34)
[2020-01-18] MEDS: Metoprolol XL (24 HR) Succ 50 MG TAB.ER.24H PO SCH (09:34)
[2020-01-18] MEDS: Aspirin Enteric Coated 81 MG Tablet PO SCH (09:34)
[2020-01-18] MEDS: Apixaban 5 MG TABLET PO SCH (09:34)
== END 2020-01-18 13:35 | disposition home or self-care (01) | DRG 949 ==
LOC: INPGRE 01-08 18:23
PROVIDERS: ADMIT Family Medicine; ATTEND Family Medicine